=== PATIENT | female | born 1955 | race Caucasian/White ===

== ENCOUNTER 2019-02-15 14:29 | Outpatient (CLI) | payer MEDICAID ==
[2015-02-11 09:52] VITALS: BP 143/96
[2019-02-15 15:17] LABS: eGFR (Non-African) > 60
== END 2019-02-15 14:32 ==
LOC: LAB 14:29
PROVIDERS: ATTEND Family Medicine
DX: I10 Essential (primary) hypertension (principal)
CPT/HCPCS: 36415; 80048